=== PATIENT | male | born 1985 | race Caucasian/White ===

== ENCOUNTER 2020-11-24 20:16 | Emergency (ER) | payer MEDICAID ==
[2020-11-24] MEDS ORDERED: IBUPROFEN 600 MG TAB PO STA (20:26)
--- NOTE | 2020-11-24 21:09 | XR ---
EXAMINATION TYPE: XR chest 2V DATE OF EXAM: 11/24/2020 COMPARISON: NONE HISTORY: Fever TECHNIQUE: 2 views FINDINGS: Heart and mediastinum are normal. Lungs are clear. Diaphragm is normal. Bony thorax appears normal. IMPRESSION: Normal chest. Normal heart.
--- NOTE | 2020-11-24 21:13 | ED ---
Fever HPI - General Chief Complaint: Fever Stated Complaint: Fever Time Seen by Provider: 11/24/20 20:25 Source: patient Mode of arrival: ambulatory Limitations: no limitations - History of Present Illness Initial Comments: 35-year-old male presents to the emergency room with a chief complaint of fever. Patient reports yesterday he was going basketball and he felt more fatigued usual but did not think much of it. He states earlier today he noticed more fatigue, chills and a fever. Denies taking medication to the symptoms. Also reports a nonproductive cough that developed earlier today. Denies any chest pain or shortness of breath. Denies any other URI like symptoms. - Related Data Allergies Allergy/AdvReac Type Severity Reaction Status Date / Time codeine Allergy Unknown Verified 11/24/20 20:21 Childhood Review of Systems ROS Statement: Those systems with pertinent positive or pertinent negative responses have been documented in the HPI. ROS Other: All systems not noted in ROS Statement are negative. Past Medical History Past Medical History: No Reported History History of Any Multi-Drug Resistant Organisms: None Reported Past Surgical History: No Surgical Hx Reported Past Psychological History: No Psychological Hx Reported Smoking Status: Never smoker Past Alcohol Use History: Occasional Past Drug Use History: None Reported General Exam Limitations: no limitations General appearance: alert, in no apparent distress Head exam: Present: atraumatic, normocephalic, normal inspection Eye exam: Present: normal appearance, PERRL, EOMI Pupils: Present: normal accommodation ENT exam: Present: normal exam, normal oropharynx, mucous membranes moist, TM's normal bilaterally, normal external ear exam Neck exam: Present: normal inspection, full ROM. Absent: tenderness Respiratory exam: Present: normal lung sounds bilaterally. Absent: respiratory distress, wheezes, rales, rhonchi, stridor, chest wall tenderness, accessory muscle use Cardiovascular Exam: Present: regular rate, normal rhythm, normal heart sounds Extremities exam: Present: normal inspection, full ROM. Absent: tenderness Back exam: Present: normal inspection, full ROM. Absent: tenderness, CVA tenderness (R), CVA tenderness (L) Neurological exam: Present: alert, oriented X3 Psychiatric exam: Present: normal affect, normal mood Skin exam: Present: warm, dry, intact, normal color Course Vital Signs 11/24/20 11/24/20 20:18 20:49 Temperature 100.2 F H Pulse Rate 120 H Respiratory 20 16 Rate Blood Pressure 152/87 O2 Sat by Pulse 97 Oximetry Medical Decision Making - Medical Decision Making 35-year-old healthy male presents emergency department with a chief complaint of fever. On physical examination, patient is resting comfortable. He is nontoxic. Initially tachycardic, this improved. He did have a fever here and was given ibuprofen. Chest x-ray was unremarkable. He doesn't positive for coronavirus. Patient advised to self isolating for the next 10 days starting from today. Strict return primary thoroughly discussed the patient was understanding and agreeable. Case discussed with - Lab Data Lab Results 11/24/20 Range/Units 20:49 Coronavirus (PCR) Detected A (Not Detectd) Disposition Clinical Impression: COVID-19 Disposition: HOME SELF-CARE Condition: Stable Instructions (If sedation given, give patient instructions): Coronavirus Disease 2019 (COVID-19) Additional Instructions: Please return to the Emergency Department if symptoms worsen or any other concerns. Is patient prescribed a controlled substance at d/c from ED?: No Referrals: José Berger MD [Primary Care Provider] - 1-2 days Time of Disposition: 21:54
[2020-11-24 21:55] VITALS: BP 138/67; PULSE 102; RESP 18; TEMP 98.9
== END 2020-11-24 22:02 | disposition home or self-care (01) ==
LOC: EC 20:16
DX: U07.1 COVID-19 (principal)
CPT/HCPCS: 71046; 87635; 99284